=== PATIENT | female | born 1940 | race Caucasian/White ===

== ENCOUNTER 2017-01-25 05:38 | Day surgery (SDC) | payer MEDICARE, OTHER ==
--- NOTE | 2017-01-18 11:09 | EKG REPORT ---
SEVERITY:- NORMAL ECG - SINUS RHYTHM : Confirmed by: Nayeli Larsen 18-Jan-2017 11:08:03
[2017-01-18 11:13] LABS: HEMATOCRIT 40.5 % (36.0-47.0); HEMOGLOBIN 13.6 g/dL (12.0-15.5); HGB HCT DIFFERENCE 0.3; MEAN CORPUSCULAR HEMOGLOBIN 31.5 pg (27.0-33.4); MEAN CORPUSCULAR HGB CONC 33.7 g/dL (32.0-36.0); MEAN CORPUSCULAR VOLUME 94 fl (80-97); RED BLOOD COUNT 4.33 10^6/uL (3.72-5.28); RED CELL DISTRIBUTION WIDTH 12.7 % (11.5-14.0); WHITE BLOOD COUNT 9.9 10^3/uL (4.0-10.5)
[2017-01-18 11:33] LABS: APPEARANCE,URINE SLIGHTLY-CLOUDY; BILIRUBIN,URINE NEGATIVE (NEGATIVE); GLUCOSE, URINE NEGATIVE (NEGATIVE); KETONES,URINE NEGATIVE (NEGATIVE); LEUKOCYTE ESTERASE,URINE MODERATE (NEGATIVE); NITRITE,URINE NEGATIVE (NEGATIVE); PROTEIN,URINE NEGATIVE (NEGATIVE); URINE SPECIFIC GRAVITY 1.012; UROBILINOGEN,URINE NEGATIVE mg/dL (<2.0)
[2017-01-18 11:41] LABS: ANION GAP 12 (5-19); BLOOD UREA NITROGEN 18 mg/dL (7-20); CALCIUM 10.2 mg/dL (8.4-10.2); CARBON DIOXIDE 31 mmol/L (22-30); CHLORIDE 96 mmol/L (98-107); CREATININE RESULT 0.74 mg/dL (0.52-1.25); GLUCOSE 95 mg/dL (75-110); POTASSIUM 5.2 mmol/L (3.6-5.0); SODIUM 139.3 mmol/L (137-145)
[2017-01-18 11:45] LABS: BAND NEUTROPHILS % (MANUAL) 3 % (3-5); BASOPHILS % (MANUAL) 2 % (0-2); EOSINOPHILS % (MANUAL) 6 % (0-6); LYMPHOCYTES % (MANUAL) 11 % (13-45); TOTAL CELLS COUNTED 100
[2017-01-18 11:46] LABS: RBC MORPHOLOGY COMMENT NORMO-CYTIC/CHROMIC
[~2017-01-25 05:38] MED LIST: CEFAZOLIN 2 GM/D5W RTU 2 GM/50 ML RTUPB IV PRN; RINGERS SOLUTION,LACTATED 1,000 ML IV PRN
[2017-01-25] MEDS ORDERED: BUPIVACAINE HCL 0.5 % INJ/PF 30 ML SDV ONE (06:15)
[2017-01-25] MEDS ORDERED: FENTANYL CITRATE INJ/PF 100 MCG/2 ML AMPUL ONE ×2 (06:27)
[2017-01-25] MEDS ORDERED: MIDAZOLAM 2 MG/2 ML INJ ONE (06:27)
[2017-01-25] MEDS ORDERED: EPHEDRINE SULFATE INJ 50 MG/1 ML AMPULE ONE (06:27)
[2017-01-25] MEDS ORDERED: DEXMEDETOMIDINE INJ 80 MCG/20 ML VIAL IV ONE (06:28)
[2017-01-25] MEDS ORDERED: MORPHINE SULFATE 10 MG/ML INJ ONE (06:28)
[2017-01-25] MEDS ORDERED: PROPOFOL INJ 200 MG/20 ML VIAL IV ONE (06:28)
[2017-01-25] MEDS ORDERED: ACETAMINOPHEN 100 ML IV ONE (06:28)
[2017-01-25] MEDS ORDERED: FENTANYL CITRATE INJ/PF 250 MCG/5 ML AMPULE ONE (06:48)
[2017-01-25] MEDS ORDERED: PROMETHAZINE HCL INJ 25 MG/1 ML VIAL IV PRN ×2 (08:40)
[2017-01-25] MEDS ORDERED: DIPHENHYDRAMINE HCL 50 MG/ML VIAL IV PRN (08:40)
[2017-01-25] MEDS ORDERED: FENTANYL CITRATE INJ/PF 100 MCG/2 ML AMPUL IV PRN ×3 (08:40)
[2017-01-25] MEDS ORDERED: HYDROMORPHONE HCL INJ/PF 2 MG/ML AMPULE IV PRN (12:06)
[2017-01-25] MEDS ORDERED: OXYCODONE-ACETAMINOPHEN 5-325 MG TABLET PO PRN (12:06)
[2017-01-25] MEDS ORDERED: ONDANSETRON HCL INJ/PF 4 MG/2 ML SDV IV PRN (12:06)
--- NOTE | 2017-01-25 12:06 | Operative Report ---
Operative Report DATE OF SURGERY: 01/25/17 PREOPERATIVE DIAGNOSIS: Right Hand Laceration S/P Table Saw Injury w/ Digital Nerve Laceration, Flexor Adhesions POSTOPERATIVE DIAGNOSIS: Same OPERATION: Scar Excision (7cm) w/ Closure Right Hand w/ Flexor Tenolysis Ring FDP, FPL Tenodesis. Digital Nerve Reconstruction Radial SF, Ulnar/Radial RF, Ulnar MF, Ulnar Thumb Utilizing Nerve Avance Allograft. SURGEON: FUAD DEAN ANESTHESIA: GA COMPLICATIONS: None ESTIMATED BLOOD LOSS: 25cc PROCEDURE: Indication for above procedure: 76-year-old female sustained a table saw injury to right hand in October. She underwent emergent surgery at that point was found to have digital nerve lacerations flexor tendon injury. She underwent tendon repair given the nature of her injury nerve reconstruction was not possible at that setting. Patient underwent occupational therapy postoperatively she got adequate motion of the index and middle finger but continued to have adhesions of the thumb and ring finger. Along with her continued numbness of the digits. At that point we discussed treatment options including operative exploration with tenolysis and digital nerve reconstruction. Risks and benefits were explained to the patient , patient verbalized understanding consented for the procedure. Procedure In Detail: Patient was seen and evaluated in the preoperative holding area. The RIGHT upper extremity was initialized and marked. Patient received 2g of Ancef IV for bacterial prophylaxis. Patient was taken back to the operative room where transferred to the operative table and placed under general anesthesia. Once they were adequately anesthetized a nonsterile tourniquet was placed on the upper extremity. A surgical team debriefing was performed ensuring all instrumentation was available, the surgical procedure was discussed with possible concerns reviewed. The upper extremity was prepped with chlorhexidine and alcohol and draped in a sterile fashion. A timeout was done identifying correct patient, procedure and extremity everyone in attendance agree with this and verbalized no concerns. The extremity was elevated and the tourniquet was inflated to 250 mmHg. Patient's previous laceration incision was utilized and crossed along the distal palmar crease. Patient's thickened scar was resected at the distal palmar crease and was approximately 2 mm in width and 7 cm in length. Blunt dissection was performed through the plantar fascia. The superficial palmar arch was identified and remained in continuity and protected throughout the entirety of the case. Significant scar tissue was evident along the FDP tendon repair of the ring finger. The scar was excised and with the use of tenolysis knives a tenolysis was performed freeing up the FDP tendon. With a rag now I was able to fully flex the ring finger to the palmar crease. I then proceeded with identification of the digital nerve disruptions. A small extension incision was made between the ring and middle finger webspace. Blunt dissection was performed. The ulnar digital nerve of the middle finger and radial digital nerve of the ring finger were identified. I then excised or scar tissue in a proximal direction in the common digital nerve that led into the third web space was identified and a neuroma had formed. I then proceeded with identification of the fourth webspace digital nerve. The ring finger ulnar digital nerve and small finger radial digital nerve were identified. I then identified the superficial ulnar nerve proximally and followed distally to the common digital nerve which fed into the fourth webspace. I measured the size of nerve gaps. There was a 40 mm nerve at the fourth webspace and a 30 mm nerve gap at the third webspace. The appropriate size nerve graft for the fourth webspace was a 2-3 mm and the third webspace a 3-4 mm. I then utilized the operative microscope and resected the proximal common digital neuroma to the third web space until normal fascicles were identified. The same was done to the common digital nerve from the ulnar nerve until good normal feeling Ashanti's were identified. And then distally the digital nerve to the ulnar aspect of the middle finger and digital nerve to the radial aspect of the small finger were resected to normal-appearing fascicles as was the ulnar digital nerve to the ring finger and radial digital nerve to the small finger. A 3-4 millimeter by 30 mm nerve graft and a 2-3 x 50 mm nerve graft were opened and prepared in saline on the back table. 10 mm of the 2-3 mm nerve graft was resected. I then repaired the nerve proximally utilizing epineural technique with an 8-0 nylon suture which was then reinforced with fibrin glue. A 3.5 mm nerve wrap was then placed over the repair site and secured with 8-0 nylon. An epineural. With 8-0 nylon was then used for the ulnar digital nerve of the ring finger and radial digital nerve of the small finger and repair to the distal end of my nerve graft. Once again this was reinforced with fibrin glue and a 3.5 mm nerve protector was placed and secured with 8-0 nylon. A tensionless repair was successfully performed. Patient had good passive range of motion of the ring finger without tension on my repair. I then turned my attention to the third webspace. With the use of the microscope the proximal repair site was done with 8-0 nylon epineural suture reinforced with fibrin glue and a 3 mm nerve tube was placed and secured into position. Distally an epineural with 8-0 nylon was performed repairing the ulnar digital nerve of the middle finger and radial digital nerve of the ring finger to the distal aspect of the Avance allograft this was reinforced with fibrin glue and a 3.5 mm nerve protector was secured into position with 8-0 nylon. Once again with wrist and digit range of motion there was no tension at the nerve repair site. The tourniquet was deflated. Any peripheral vasculature was coagulated with bipolar cautery. Patient had good skin turgor and normal cap refill of all digits. Wound was irrigated with normal saline. The skin was closed with interrupted 3-0 nylon sutures. I then turned my attention to the thumb. The extremity was elevated and tourniquet was once again inflated to 250 mmHg. A chevron-shaped incision was made along the level of the A1 suzette of the thumb. Blunt dissection was performed and the radial digital nerve was identified and protected. The ulnar digital nerve demonstrate discontinuity. Inspecting the FPL there was 50% of the FPL remained intact and was scarred to the underlying tissues. Given patient's age I do not feel flexor reconstruction would be beneficial and thus the FPL was secured to the underlying capsule performing and FPL tenodesis with the digit at 30 of flexion. The ulnar digital nerve proximal and distal ends were then prepared until normal -appearing fascicles were identified. The remaining 10 mm of the 2-3mm Avance nerve graft was repaired with a epineural repair proximally and distally utilizing 8-0 nylon suture this was reinforced with fibrin glue. A 3 mm nerve protector was cut in half and secured at the repair sites. Tensionless repair was performed and there is no instability with range of motion of the thumb. Wound was irrigated with normal saline. Skin was closed with interrupted 3-0 nylon suture. Patient had good capillary refill of all digits after deflation of the tourniquet with normal skin turgor. A ulnar and median nerve block was performed utilizing 10 mL of 0.5% Marcaine without epinephrine. Wound was dressed with Xeroform 4 x 4's and a thumb spica splint with the thumb at 30 of flexion and the MCP joint at 40 of flexion. Dorsal blocking splint was placed across the index to small fingers leaving the IP joints free. Sponge counts, instrument counts, needle counts counts were correct. Patient was then awoken from anesthesia. Transferred from the operating room table to the operating room stretcher. There was no intraoperative complications patient tolerated procedure well stable to PACU. Postoperative plan: Patient will begin occupational therapy prior to her follow-up appointment with me. She may begin aggressive digital flexion. But avoid passive extension of the digits including the thumb IP joint. She will be fitted for a thermoplastic dorsal blocking splint.
--- NOTE | 2017-01-25 12:09 | PDOC DISCHARGE SUMMARY ---
Discharge Summary (SDC) - Discharge Final Diagnosis: Right hand laceration status post table saw injury with right hand laceration status post table saw injury with small, ring, middle and thumb digital nerve lacerations. Date of Surgery: 01/25/17 Condition: Good Treatment or Instructions: Schedule Follow Up w/ Dr. Bud Meredith @ [facility] for Surgery to be seen in 10-14 days or as scheduled Nash: Mcbrides: [place]: Continue splint until occupational therapy follow-up and fitted for a thermoplastic splint. Ice and elevate May begin finger range of motion attempting to make full fist. Stool softener of choice when on pain medication. Prescriptions: Oxycodone HCl/Acetaminophen [Percocet 5-325 mg Tablet] 1 - 2 tab PO ASDIR PRN # 40 tablet PRN Reason: Discharge Diet: As Tolerated Respiratory Treatments at Home: Deep Breathing/Coughing Discharge Activity: No Lifting Over 10 Pounds, No Lifting/Push/Pulling Report the Following to Your Physician Immediately: Fever over 101 Degrees, Unusual Bleeding, Redness, Swelling, Warmth, Increased Soreness
[2017-01-25 14:07] VITALS: BP 125/73
[2017-01-25] MEDS ORDERED: SUCCINYLCHOLINE CHLORIDE INJ 200 MG/10 ML VIAL ONE (14:11)
[2017-01-25] MEDS ORDERED: NEOSTIGMINE METHYLSULFATE 10 MG/10 ML VIAL ONE (14:11)
[2017-01-25] MEDS ORDERED: DEXAMETHASONE SOD PHOSPHATE INJ 4 MG/1 ML VIAL ONE (14:11)
[2017-01-25] MEDS ORDERED: KETOROLAC TROMETHAMINE 60 MG/2 ML SDV ONE (14:11)
[2017-01-25] MEDS ORDERED: ROCURONIUM BROMIDE INJ 50 MG/5 ML VIAL IV ONE (14:11)
[2017-01-25] MEDS ORDERED: ONDANSETRON HCL INJ/PF 4 MG/2 ML SDV ONE (14:11)
[2017-01-25] MEDS ORDERED: LIDOCAINE 2% INJ-PF (20 MG/ML) 10 ML AMPUL ONE (14:11)
[2017-01-25] MEDS ORDERED: PHENYLEPHRINE HCL INJ/PF 10 MG/1 ML SDV ONE (14:11)
[2017-01-25] MEDS ORDERED: GLYCOPYRROLATE INJ 0.4 MG/2 ML VIAL ONE (14:11)
== END 2017-01-25 14:00 | disposition home or self-care (01) ==
LOC: OROUT 05:38
PROVIDERS: ATTEND Orthopaedic Surgery
PROC: 01U407Z Supplement Ulnar Nerve with Autologous Tissue Substitute, Open Approach (ICD-10-PCS; 2017-01-25)
PROC: 01U607Z Supplement Radial Nerve with Autologous Tissue Substitute, Open Approach (ICD-10-PCS; 2017-01-25)
PROC: 0LS50ZZ Reposition Right Lower Arm and Wrist Tendon, Open Approach (ICD-10-PCS; principal; 2017-01-25 08:00)
DX: S64.492D Injury of digital nerve of right middle finger, subsequent encounter (principal); S64.494 Injury of digital nerve of right ring finger; S64.496D Injury of digital nerve of right little finger, subsequent encounter; S61.411D Laceration without foreign body of right hand, subsequent encounter; X58.XXXD Exposure to other specified factors, subsequent encounter; M67.843 Other specified disorders of tendon, right hand; M79.641 Pain in right hand; Z79.82 Long term (current) use of aspirin; Z79.899 Other long term (current) drug therapy; K21.9 Gastro-esophageal reflux disease without esophagitis; M19.90 Unspecified osteoarthritis, unspecified site; I10 Essential (primary) hypertension; M19.049 Primary osteoarthritis, unspecified hand; Z87.891 Personal history of nicotine dependence; Z88.5 Allergy status to narcotic agent
CPT/HCPCS: 93005; 36415 ×2; 84132; 85025; 80048; 81001; 71020; 93010; 25300; 64910; 64702 ×3; 64727; J2250; J3490 ×3; J1100; J1885; J3010 ×2; A9270; J2370; J0330; J2405; J2704; J0690; J0131; 1810; J2270